=== PATIENT | male | born 1945 | race Caucasian/White ===

== ENCOUNTER 2018-03-03 09:32 | Day surgery (SDC) | payer MEDICARE, OTHER ==
[~2018-03-03] VITALS: Ht 180.3 cm; Wt 105.1 kg
[~2018-03-03 09:32] MED LIST: CLOP75TA14 PO; GABA-529 PO; INSU100V12 SQ; ROSU10TA PO; SODIUM CHLORIDE 0.9% 1000ML 1,000 ML IV ONE
[2018-03-03 09:51] VITALS: BP 146/73
[2018-03-03] MEDS ORDERED: METO-391 PO (10:32)
[2018-03-03] MEDS ORDERED: FISH1CAP20 PO (10:32)
[2018-03-03] MEDS ORDERED: CHOL100040 PO (10:32)
[2018-03-03] MEDS ORDERED: APIX2.5T PO (10:32)
[2018-03-03 11:08] VITALS: BP 75/33
[2018-03-03 11:10] VITALS: BP 75/33
[2018-03-03 11:13] VITALS: BP 90/57
[2018-03-03 11:29] VITALS: BP 122/61
--- NOTE | 2018-03-03 11:45 | NUR ---
PT TOLERATED PROCEDURE WELL, AT BEDSIDE FOR INSTRUCTIONS, PRESCRIPTION GIVEN TO AND DISCHARGE EDUCATION PACKET. PT AND GIVEN POST CARE INSTRUCTIONS, STATED UNDERSTANDING, PT ASSISTED TO CHAIR AND DRESSED. PT ABLE TO TOLERATE FLUIDS .PERSONAL BELONGING WITH WITH , PT PLACED IN WHEELCHAIR , DRIVEN HOME BY .
== END 2018-03-03 11:45 | disposition home or self-care (01) ==
LOC: DAH 09:32 → ENDO 09:32
PROVIDERS: ATTEND Internal Medicine
DX: K29.50 Unspecified chronic gastritis without bleeding (principal); D50.9 Iron deficiency anemia, unspecified; K25.9 Gastric ulcer, unspecified as acute or chronic, without hemorrhage or perforation; K31.89 Other diseases of stomach and duodenum; Z95.1 Presence of aortocoronary bypass graft; Z79.899 Other long term (current) drug therapy; I25.10 Atherosclerotic heart disease of native coronary artery without angina pectoris; Z95.0 Presence of cardiac pacemaker; E11.22 Type 2 diabetes mellitus with diabetic chronic kidney disease; N18.9 Chronic kidney disease, unspecified; Z98.890 Other specified postprocedural states; Z68.32 Body mass index [BMI] 32.0-32.9, adult; Z79.4 Long term (current) use of insulin; Z79.84 Long term (current) use of oral hypoglycemic drugs; Z85.46 Personal history of malignant neoplasm of prostate
CPT/HCPCS: 43239; 82948 ×2; 88305; 93005; A4606; J7030

== ENCOUNTER 2019-05-24 09:24 | Observation (INO) | payer OTHER ==
[~2019-05-24] VITALS: Ht 182.9 cm; Wt 107.6 kg
[~2019-05-24 09:24] MED LIST changes: +APIX2.5T PO; +CHOL100040 PO; +FISH1CAP20 PO; +METO-391 PO; -ROSU10TA PO; +ROSU10TA22 PO; -SODIUM CHLORIDE 0.9% 1000ML 1,000 ML IV ONE
[2019-05-24 09:50] LABS: EOSINOPHILS % (AUTO) 2.7 % (0.0-8.0); HEMATOCRIT 32.5 % (42-54); LYMPHOCYTES % (AUTO) 39.3 % (21.0-51.0); MEAN CORPUSCULAR HEMOGLOBIN 30.3 pg (27.0-33.0); MEAN CORPUSCULAR HGB CONC 31.7 g/dL (32.0-36.0); MEAN CORPUSCULAR VOLUME 95.6 fL (79-99); MONOCYTES % (AUTO) 10.2 % (3.0-13.0); NEUTROPHILS % (AUTO) 46.6 % (40.0-77.0); PLATELET COUNT (AUTO) 169 K/uL (130-400); RED CELL DISTRIBUTION WIDTH 16.2 % (11.0-15.5); WHITE BLOOD COUNT (AUTO) 5.2 K/uL (4.8-10.8)
[2019-05-24 10:09] LABS: INR 1.02 (0.85-1.15); PARTIAL THROMBOPLASTIN TIME 30.6 SEC (26.3-35.5)
[2019-05-24 10:16] LABS: CREATININE 1.9 mg/dL (0.5-1.5); POTASSIUM 4.2 mmol/L (3.5-5.1)
[2019-05-24 10:22] LABS: ALBUMIN 3.4 g/dL (3.5-5.0); BILIRUBIN,TOTAL 0.3 mg/dL (0.2-1.0); TOTAL PROTEIN, SERUM 7.4 g/dL (6.0-8.3)
[2019-05-24 10:48] LABS: APPEARANCE,URINE CLEAR (CLEAR); BILIRUBIN,URINE NEGATIVE (NEGATIVE); COLOR,URINE YELLOW (YELLOW); GLUCOSE, URINE (UA) NEGATIVE (NEGATIVE); KETONES,URINE NEGATIVE (NEGATIVE); LEUKOCYTE ESTERASE ,URINE NEGATIVE (NEGATIVE); NITRATE,URINE NEGATIVE (NEGATIVE); OCCULT BLOOD,URINE NEGATIVE (NEGATIVE); PH,URINE 5.5 (5.0-8.0); PROTEIN,URINE NEGATIVE (NEGATIVE)
[2019-05-24] MEDS ORDERED: INSULIN GLARGINE 100 UNITS/ML 10 ML VIAL SQ SCH (21:00)
[2019-05-24] MEDS ORDERED: ATORVASTATIN CALCIUM 20 MG TABLET PO SCH (21:00)
--- NOTE | 2019-05-25 01:11 | NUR ---
ADMISSION PT ADMITTED FROM ER INTO ROOM 430, AWAKE ALERT AND VERBALLY RESPONSIVE. PT ABLE TO AMBULATE FROM STRETCHER TO BED, ABLE TO MOVE ALL EXTREMITIES, NO LOC CHANGES, ABLE TO ANSWER QUESTIONS CORRECTLY, AND FOLLOW COMMANDS. PT ORIENTED TO ROOM , CALL [facility] WITHIN REACH, BED IN LOWEST POSITION. Addendum: 05/25/19 at 0225 by DERRICK HERNDON RN Amended: Links added.
[2019-05-25 01:15] VITALS: BP 140/65
[2019-05-25] MEDS: FISH OIL 1000 MG/CAP PO SCH ×2 (01:52→08:51)
[2019-05-25] MEDS: GABAPENTIN 100 MG CAPSULE PO SCH ×2 (01:52→08:50)
[2019-05-25] MEDS: SODIUM CHLORIDE 0.9% 1000ML 1,000 ML IV SCH ×2 (01:53→01:54)
[2019-05-25] MEDS: INSULIN HUMULIN R 100 UNIT/ML 3ML SQ SCH ×3 (01:53→11:30)
[2019-05-25 04:00] VITALS: BP 110/65
[2019-05-25 06:51] LABS: BASOPHILS % (AUTO) 0.7 % (0.0-5.0); EOSINOPHILS % (AUTO) 2.5 % (0.0-8.0); HEMATOCRIT 31.4 % (42-54); LYMPHOCYTES % (AUTO) 32.3 % (21.0-51.0); MEAN CORPUSCULAR HGB CONC 31.2 g/dL (32.0-36.0); MONOCYTES % (AUTO) 9.6 % (3.0-13.0); NEUTROPHILS % (AUTO) 54.5 % (40.0-77.0); PLATELET COUNT (AUTO) 159 K/uL (130-400); RED BLOOD CELL COUNT(AUTO) 3.27 MIL/uL (4.50-6.20); RED CELL DISTRIBUTION WIDTH 16.4 % (11.0-15.5); WHITE BLOOD COUNT (AUTO) 5.6 K/uL (4.8-10.8)
[2019-05-25 07:37] LABS: BILIRUBIN,TOTAL 0.2 mg/dL (0.2-1.0); CREATININE 1.9 mg/dL (0.5-1.5); POTASSIUM 4.4 mmol/L (3.5-5.1); TOTAL PROTEIN, SERUM 6.7 g/dL (6.0-8.3)
[2019-05-25 08:02] LABS: CHOLESTEROL 90 mg/dL (<200); HDL CHOLESTEROL 22 mg/dL (29-71); LDL DIRECT 44 mg/dL (0-99); TRIGLYCERIDES 251 mg/dL (30-200)
[2019-05-25 08:16] VITALS: BP 133/82
[2019-05-25] MEDS ORDERED: CHOLECALCIFEROL 1000 UNIT PO SCH (09:00)
[2019-05-25] MEDS ORDERED: ASPIRIN 325 MG TABLET PO SCH (09:00)
[2019-05-25] MEDS ORDERED: CLOPIDOGREL BISULFATE 75 MG TAB PO SCH (09:00)
[2019-05-25] MEDS ORDERED: FAMOTIDINE/PF 20 MG/2 ML VIAL IV SCH (09:00)
[2019-05-25] MEDS ORDERED: METOPROLOL SUCCINATE 50 MG TAB.SR.24H PO SCH (09:00)
[2019-05-25 11:40] VITALS: BP 139/72
--- NOTE | 2019-05-25 12:25 | NUR ---
RD NOTIFICATION Pt admitted with AMS, Syncope. Pt tolerating Heart Healthy Diet order. Reports has decreased appetite but with fair PO intake. RD recommend Ensure BID, Pt agrees. RD provided Heart Healthy Nutrition education. Pt verbalized understanding. and sister are primary meal providers at home and will appreciate the information. RD to continue to monitor. Addendum: 05/25/19 at [address] RD Amended: Links added.
--- NOTE | 2019-05-25 12:28 | NUR ---
NUTRITION [facility]UC[facility] MADYSON provided Heart Healthy Nutrition education. MADYSON provided reference materials and handouts. Pt verbalized understanding. and sister are primary meal providers at home and will appreciate the information. Addendum: 05/25/19 at [address] Amended: Links added.
--- NOTE | 2019-05-25 15:10 | NUR ---
INITIAL SW spoke to patient's spouse, Anna Jackson, [phone]. Patient lives with spouse. No home services. DME: [employer], glucometer (uses insulin), cane, walker. Patient is able to complete ADL's independently and drives. PCP is [place]. Gabe [place] at [place]. Pharmacy [place] [facility]. DCP is home. Addendum: 05/25/19 at 1512 by DELILAH BRITO SS Amended: Links added.
[2019-05-25 15:58] VITALS: BP 155/67
[2019-05-25] MEDS ORDERED: IBUP-2070 PO (16:05)
[2019-05-25] MEDS ORDERED: METO25TA3 PO (16:20)
== END 2019-05-25 17:00 | disposition home or self-care (01) ==
LOC: EDH 09:24 → INTOOBSV 14:55 → EDHIP 14:55 → OBSVTOIN 14:55 → 4AH 05-25 01:05
PROVIDERS: ADMIT Hospitalist; ATTEND Hospitalist
DX: R55 Syncope and collapse (principal); S00.83XA Contusion of other part of head, initial encounter; R41.82 Altered mental status, unspecified; E86.9 Volume depletion, unspecified; N17.9 Acute kidney failure, unspecified; E11.65 Type 2 diabetes mellitus with hyperglycemia; D64.9 Anemia, unspecified; E43 Unspecified severe protein-calorie malnutrition; I25.810 Atherosclerosis of coronary artery bypass graft(s) without angina pectoris; I25.2 Old myocardial infarction; I10 Essential (primary) hypertension; Z95.0 Presence of cardiac pacemaker; Z87.891 Personal history of nicotine dependence; W18.39XA Other fall on same level, initial encounter; Y93.89 Activity, other specified; Y92.89 Other specified places as the place of occurrence of the external cause; Y99.8 Other external cause status; Z88.5 Allergy status to narcotic agent; Z88.8 Allergy status to other drugs, medicaments and biological substances
CPT/HCPCS: 36415 ×2; 70450 ×2; 71045; 72125; 73502; 73560; 80053 ×2; 80061; 81003; 82550; 82948 ×4; 83605; 84443; 84484; 85025 ×2; 85610; 85651; 85730; 93005; 96361; 96374; 97039; 97116; 97161; 99285; G0378 ×11; G8978; G8979; G8980; G8981; G8982; G8983; J3490

== ENCOUNTER 2020-03-18 06:58 | Day surgery (SDC) | payer OTHER ==
[~2020-03-18] VITALS: Ht 182.9 cm; Wt 101.2 kg
[~2020-03-18 06:58] MED LIST changes: +ALOG12.52 PO; -APIX2.5T PO; +FERR324T PO; -METO-391 PO; +METO-409 PO; +SODIUM CHLORIDE 0.9% 1000ML 1,000 ML IV ONE
[2020-03-18 07:15] VITALS: BP 148/73
[2020-03-18] MEDS ORDERED: AEC81 PO (08:30)
[2020-03-18] MEDS ORDERED: PROPOFOL 10 MG/ML 20ML VIAL IV ONE (09:03)
[2020-03-18] MEDS ORDERED: LIDOCAINE HCL 1% 20 ML VIAL ONE (09:03)
[2020-03-18 09:40] VITALS: BP 124/61
[2020-03-18 09:45] VITALS: BP 132/56
[2020-03-18 09:50] VITALS: BP 135/63
[2020-03-18 09:55] VITALS: BP 126/65
== END 2020-03-18 10:30 | disposition home or self-care (01) ==
LOC: ENDO 06:58 → DAH 06:58 → ENDO 10:30
PROVIDERS: ATTEND Internal Medicine Gastroenterology
DX: K59.04 Chronic idiopathic constipation (principal); Z20.822 Contact with and (suspected) exposure to COVID-19; R10.10 Upper abdominal pain, unspecified; K57.30 Diverticulosis of large intestine without perforation or abscess without bleeding; K29.50 Unspecified chronic gastritis without bleeding; E11.22 Type 2 diabetes mellitus with diabetic chronic kidney disease; N18.9 Chronic kidney disease, unspecified; I25.10 Atherosclerotic heart disease of native coronary artery without angina pectoris; I25.2 Old myocardial infarction; Z79.82 Long term (current) use of aspirin; Z79.01 Long term (current) use of anticoagulants; Z79.899 Other long term (current) drug therapy; Z79.4 Long term (current) use of insulin; Z85.07 Personal history of malignant neoplasm of pancreas; Z95.1 Presence of aortocoronary bypass graft; Z95.0 Presence of cardiac pacemaker; Z98.890 Other specified postprocedural states; Z87.442 Personal history of urinary calculi
CPT/HCPCS: 43239; 45378; 82948 ×2; A4215 ×2; A4222; A4223; A4606; A4620; A4657; A4663; C9803; J2704; J7030; U0003

== ENCOUNTER → 2020-05-19 | Outpatient (CLI) | payer OTHER ==
[~2020-05-19] MED LIST changes: +AEC81 PO; -ALOG12.52 PO; -CHOL100040 PO; -FISH1CAP20 PO; -ROSU10TA22 PO; -SODIUM CHLORIDE 0.9% 1000ML 1,000 ML IV ONE
== END | disposition home or self-care (01) ==
LOC: RAH 12:25
PROVIDERS: ATTEND Family Medicine
DX: S76.012S Strain of muscle, fascia and tendon of left hip, sequela (principal); M47.27 Other spondylosis with radiculopathy, lumbosacral region; M48.07 Spinal stenosis, lumbosacral region; R60.0 Localized edema; Z79.899 Other long term (current) drug therapy
CPT/HCPCS: 72148; 73721

== ENCOUNTER 2020-10-14 09:00 | Inpatient (IN) | payer OTHER ==
[~2020-10-14] VITALS: Ht 182.9 cm; Wt 99.1 kg
[~2020-10-14 09:00] MED LIST changes: -FERR324T PO
[2020-10-14 10:27] LABS: BASOPHILS % (AUTO) 0.8 % (0.0-5.0); EOSINOPHILS % (AUTO) 3.3 % (0.0-8.0); LYMPHOCYTES % (AUTO) 26.2 % (21.0-51.0); MEAN CORPUSCULAR HEMOGLOBIN 30.2 pg (27.0-33.0); MEAN CORPUSCULAR HGB CONC 31.1 g/dL (32.0-36.0); MEAN CORPUSCULAR VOLUME 97.3 fL (79-99); MONOCYTES % (AUTO) 6.6 % (3.0-13.0); NEUTROPHILS % (AUTO) 62.6 % (40.0-77.0); PLATELET COUNT (AUTO) 210 K/uL (130-400); RED BLOOD CELL COUNT(AUTO) 4.83 MIL/uL (4.50-6.20); RED CELL DISTRIBUTION WIDTH 16.3 % (11.0-15.5); WHITE BLOOD COUNT (AUTO) 8.7 K/uL (4.8-10.8)
[2020-10-14 10:29] LABS: APPEARANCE,URINE Clear (CLEAR); BILIRUBIN,URINE Small (NEGATIVE); COLOR,URINE Dark Yellow (YELLOW); GLUCOSE, URINE (UA) Negative (NEGATIVE); KETONES,URINE Trace mg/dL (NEGATIVE); LEUKOCYTE ESTERASE ,URINE Small (NEGATIVE); NITRATE,URINE Negative (NEGATIVE); OCCULT BLOOD,URINE Negative (NEGATIVE); PROTEIN,URINE Trace mg/dL (NEGATIVE)
[2020-10-14 10:39] LABS: INR 1.02 (0.85-1.15); PROTHROMBIN TIME 11.1 SEC (9.6-11.6)
[2020-10-14 10:41] LABS: RBC,URINE 0-1 /HPF (0-1)
[2020-10-14 10:42] LABS: BACTERIA,URINE Rare /HPF (None Seen); SQUAMOUS EPITHELIAL CELL,UR Rare /HPF (0-2)
[2020-10-14 10:46] LABS: CREATININE 2.2 mg/dL (0.5-1.5); POTASSIUM 4.9 mmol/L (3.5-5.1)
[2020-10-14 15:11] VITALS: BP 122/70
[2020-10-14] MEDS ORDERED: HYDR-4379 PO (15:43)
[2020-10-14] MEDS ORDERED: DICY10CA13 PO (15:43)
[2020-10-15] VITALS (23 sets, daily range): BP systolic 109–162; BP diastolic 44–71
[2020-10-15] MEDS ORDERED: LEVOFLOXACIN 500 MG/D5W 100 ML 100 ML IV SCH (06:30)
[2020-10-15] MEDS ORDERED: 0.9%NACL 1000ML 1,000 ML IV ONE (06:58)
[2020-10-15] MEDS: CEFAZOLIN SODIUM 1 GM VIAL ONE ×2 (07:09→09:00)
[2020-10-15] MEDS ORDERED: LIDOCAINE HCL-MPF 1% 5ML AMP IJ ONE (08:15)
[2020-10-15] MEDS ORDERED: SUCCINYLCHOLINE CHLORIDE 20 MG/ML 10 ML VIAL ONE (08:15)
[2020-10-15] MEDS ORDERED: MIDAZOLAM HCL 1 MG/ML 2ML VIAL ONE (08:16)
[2020-10-15] MEDS ORDERED: ROCURONIUM 10MG/1ML SYR 10 MG/ML ML ONE (08:16)
[2020-10-15] MEDS ORDERED: PROPOFOL 10 MG/ML 20ML VIAL IV ONE (08:16)
[2020-10-15] MEDS ORDERED: FENTANYL CITRATE PF 50 MCG/1 ML 2ML VIAL ONE (08:16)
[2020-10-15] MEDS ORDERED: EPHEDRINE SULFATE 50 MG/ML AMPULE ONE (08:44)
[2020-10-15] MEDS ORDERED: CEFAZOLIN SODIUM 1 GM VIAL ONE (09:21)
[2020-10-15] MEDS: 0.9%NACL 1000ML 1,000 ML IV SCH (11:30)
[2020-10-15] MEDS ORDERED: FERROUS FUMARATE 324 MG TABLET PO PRN (11:30)
[2020-10-15] MEDS ORDERED: KCL 20 MEQ ERTAB PO PRN (11:30)
[2020-10-15] MEDS ORDERED: DiphenhydrAMINE HCL 50 MG/ML VIAL IVP PRN (11:30)
[2020-10-15] MEDS: CEFAZOLIN SODIUM 1 GM VIAL IVP SCH ×2 (11:30→19:42)
[2020-10-15] MEDS ORDERED: DIPHENHYDRAMINE HCL 25 MG CAPSULE PO PRN (11:30)
[2020-10-15] MEDS ORDERED: TRAMADOL HCL 50 MG TABLET PO PRN (11:30)
[2020-10-15] MEDS ORDERED: KETOROLAC 15MG/ML VIAL (15MG/ML) IV PRN (11:30)
[2020-10-15] MEDS ORDERED: POTASSIUM CHLORIDE 10% ELIXIR 20 MEQ/15 ML UDCUP PO PRN (11:30)
[2020-10-15] MEDS ORDERED: LIDOCAINE HCL-MPF 1% 2ML VIAL IV PRN (11:30)
[2020-10-15] MEDS ORDERED: POTASSIUM CHLORIDE 20MEQ/100ML 100 ML IV PRN (11:30)
[2020-10-15] MEDS: INSULIN HUMULIN R 100 UNIT/ML 3ML SQ SCH ×3 (11:30→21:00)
[2020-10-15] MEDS ORDERED: TEMAZEPAM 15 MG CAPSULE PO PRN (11:30)
[2020-10-15] MEDS ORDERED: ONDANSETRON 4MG INJ IVP PRN (11:30)
[2020-10-15] MEDS: ACETAMINOPHEN 500 MG TABLET PO SCH ×2 (11:30→19:42)
[2020-10-15] MEDS: PSYLLIUM SEED 1 EACH PACKET PO SCH (12:00)
[2020-10-15] MEDS ORDERED: MEPERIDINE-PF 25 MG/ML SYG ONE (12:24)
[2020-10-15] MEDS ORDERED: GABAPENTIN 100 MG CAPSULE ONE (19:38)
[2020-10-15] MEDS: GABAPENTIN 100 MG CAPSULE PO SCH (19:40)
[2020-10-15] MEDS: DICYCLOMINE HCL 20 MG TAB PO SCH (19:41)
[2020-10-15] MEDS: PREGABALIN 25 MG CAP PO SCH (19:41)
[2020-10-15] MEDS: FAMOTIDINE 20MG TAB PO SCH (19:42)
[2020-10-15] MEDS: CELECOXIB 200 MG CAP PO SCH (19:43)
[2020-10-16] VITALS: BP 104/47
[2020-10-16] MEDS: ACETAMINOPHEN 500 MG TABLET PO SCH ×3 (03:30→19:30)
[2020-10-16 04:00] VITALS: BP 126/49
[2020-10-16 04:37] LABS: HEMATOCRIT 39.6 % (42-54); MEAN CORPUSCULAR HEMOGLOBIN 29.8 pg (27.0-33.0); MEAN CORPUSCULAR HGB CONC 30.6 g/dL (32.0-36.0); MEAN CORPUSCULAR VOLUME 97.5 fL (79-99); PLATELET COUNT (AUTO) 166 K/uL (130-400); RED BLOOD CELL COUNT(AUTO) 4.06 MIL/uL (4.50-6.20); RED CELL DISTRIBUTION WIDTH 16.5 % (11.0-15.5); WHITE BLOOD COUNT (AUTO) 9.4 K/uL (4.8-10.8)
[2020-10-16 04:55] LABS: CREATININE 1.8 mg/dL (0.5-1.5)
[2020-10-16 04:59] LABS: INR 1.06 (0.85-1.15); PROTHROMBIN TIME 11.5 SEC (9.6-11.6)
[2020-10-16] MEDS: OXYCODONE HCL 5 MG TAB PO PRN ×4 (05:38→17:49)
[2020-10-16 07:22] VITALS: BP 102/46
[2020-10-16] MEDS: INSULIN HUMULIN R 100 UNIT/ML 3ML SQ SCH ×4 (07:30→21:00)
[2020-10-16] MEDS: 0.9%NACL 1000ML 1,000 ML IV SCH (07:30)
[2020-10-16] MEDS: INSULIN GLARGINE 100 UNITS/ML 10 ML VIAL SQ SCH (09:00)
[2020-10-16] MEDS: POLYETHYLENE GLYCOL 3350 17 GM POWD.PACK PO SCH (10:29)
[2020-10-16] MEDS: METOPROLOL SUCCINATE 50 MG TAB.SR.24H PO SCH (10:30)
[2020-10-16] MEDS: ASPIRIN 81 MG EC TAB PO SCH (10:30)
[2020-10-16] MEDS: GABAPENTIN 100 MG CAPSULE PO SCH ×3 (10:30→21:57)
[2020-10-16] MEDS: CELECOXIB 200 MG CAP PO SCH ×2 (10:30→21:57)
[2020-10-16] MEDS: TAMSULOSIN HCL 0.4 MG CAP.ER.24H PO SCH (10:30)
[2020-10-16] MEDS: PREGABALIN 25 MG CAP PO SCH ×2 (10:30→21:58)
[2020-10-16] MEDS: CLOPIDOGREL 75MG TAB PO SCH (10:30)
[2020-10-16] MEDS: DICYCLOMINE HCL 20 MG TAB PO SCH ×2 (10:31→21:58)
[2020-10-16] MEDS: FAMOTIDINE 20MG TAB PO SCH ×2 (10:31→21:58)
[2020-10-16] MEDS: CALCIUM CARB 500MG PO PRN (11:09)
[2020-10-16 11:45] VITALS: BP 111/57
[2020-10-16] MEDS: PSYLLIUM SEED 1 EACH PACKET PO SCH (13:03)
[2020-10-16 15:43] VITALS: BP 97/47
[2020-10-16 19:00] VITALS: BP 107/43
[2020-10-17] VITALS: BP 118/45
[2020-10-17] MEDS: ACETAMINOPHEN 500 MG TABLET PO SCH ×2 (03:05→11:17)
[2020-10-17 04:00] VITALS: BP 108/47
[2020-10-17 04:50] LABS: HEMATOCRIT 35.1 % (42-54); MEAN CORPUSCULAR HEMOGLOBIN 30.1 pg (27.0-33.0); MEAN CORPUSCULAR HGB CONC 31.1 g/dL (32.0-36.0); RED BLOOD CELL COUNT(AUTO) 3.62 MIL/uL (4.50-6.20); RED CELL DISTRIBUTION WIDTH 16.4 % (11.0-15.5); WHITE BLOOD COUNT (AUTO) 7.7 K/uL (4.8-10.8)
[2020-10-17 04:59] LABS: INR 1.05 (0.85-1.15); PROTHROMBIN TIME 11.4 SEC (9.6-11.6)
[2020-10-17 05:05] LABS: CREATININE 2.1 mg/dL (0.5-1.5); POTASSIUM 5.2 mmol/L (3.5-5.1)
[2020-10-17] MEDS: INSULIN HUMULIN R 100 UNIT/ML 3ML SQ SCH ×2 (06:34→11:35)
[2020-10-17 07:55] VITALS: BP 124/60
[2020-10-17] MEDS: OXYCODONE HCL 5 MG TAB PO PRN ×2 (08:11→12:56)
[2020-10-17] MEDS: INSULIN GLARGINE 100 UNITS/ML 10 ML VIAL SQ SCH (08:37)
[2020-10-17] MEDS: TAMSULOSIN HCL 0.4 MG CAP.ER.24H PO SCH (08:41)
[2020-10-17] MEDS: METOPROLOL SUCCINATE 50 MG TAB.SR.24H PO SCH (08:41)
[2020-10-17] MEDS: ASPIRIN 81 MG EC TAB PO SCH (08:41)
[2020-10-17] MEDS: FAMOTIDINE 20MG TAB PO SCH (08:41)
[2020-10-17] MEDS: PREGABALIN 25 MG CAP PO SCH (08:41)
[2020-10-17] MEDS: CELECOXIB 200 MG CAP PO SCH (08:42)
[2020-10-17] MEDS: CLOPIDOGREL 75MG TAB PO SCH (08:42)
[2020-10-17] MEDS: GABAPENTIN 100 MG CAPSULE PO SCH ×2 (08:42→14:47)
[2020-10-17] MEDS: POLYETHYLENE GLYCOL 3350 17 GM POWD.PACK PO SCH (08:42)
[2020-10-17] MEDS: DICYCLOMINE HCL 20 MG TAB PO SCH (08:42)
[2020-10-17] MEDS: CALCIUM CARB 500MG PO PRN (08:42)
[2020-10-17 11:29] VITALS: BP 118/55
[2020-10-17] MEDS ORDERED: BISACODYL 5 MG TABLET.DR PO PRN (11:30)
[2020-10-17] MEDS: PSYLLIUM SEED 1 EACH PACKET PO SCH (11:57)
[2020-10-17] MEDS ORDERED: SIMETHICONE 80 MG TAB.CHEW ONE (12:06)
[2020-10-17] MEDS ORDERED: SIMETHICONE 80 MG TAB.CHEW PO PRN (12:30)
[2020-10-17 16:18] VITALS: BP 118/60
[2020-10-18] MEDS ORDERED: BISACODYL 10 MG SUPP.RECT RC PRN (11:30)
== END 2020-10-17 16:00 | disposition home or self-care (01) | DRG 502 ==
LOC: EDSTATUS 09:00 → DAHIP 10-15 06:26 → 3AH 10-15 13:54
PROVIDERS: ADMIT Orthopaedic Surgery; ATTEND Orthopaedic Surgery
PROC: 0KQR0ZZ Repair Left Upper Leg Muscle, Open Approach (ICD-10-PCS; principal; 2020-10-15 09:22)
DX: S76.312A Strain of muscle, fascia and tendon of the posterior muscle group at thigh level, left thigh, initial encounter (principal); D64.9 Anemia, unspecified; K21.9 Gastro-esophageal reflux disease without esophagitis; G89.29 Other chronic pain; I25.10 Atherosclerotic heart disease of native coronary artery without angina pectoris; N18.9 Chronic kidney disease, unspecified; I12.9 Hypertensive chronic kidney disease with stage 1 through stage 4 chronic kidney disease, or unspecified chronic kidney disease; E11.22 Type 2 diabetes mellitus with diabetic chronic kidney disease; E78.5 Hyperlipidemia, unspecified; L57.0 Actinic keratosis; Z20.822 Contact with and (suspected) exposure to COVID-19; Z95.0 Presence of cardiac pacemaker; Z98.42 Cataract extraction status, left eye; Z98.41 Cataract extraction status, right eye; Z87.11 Personal history of peptic ulcer disease; Z85.46 Personal history of malignant neoplasm of prostate; Z88.5 Allergy status to narcotic agent
CPT/HCPCS: 36415; 80048; 81001; 82948; 85025; 85027; 85610; 87088; 87635; 87641; 97039; G0378; J0330; J0690; J1815; J1956; J2175; J2250; J2704; J3010; J3490; J7030

== ENCOUNTER → 2021-02-03 | Outpatient (CLI) | payer OTHER ==
[~2021-02-03] MED LIST changes: +DICY10CA13 PO; +HYDR-4379 PO
== END | disposition home or self-care (01) ==
LOC: RAH 07:43
PROVIDERS: ATTEND Internal Medicine Gastroenterology
DX: R10.10 Upper abdominal pain, unspecified (principal)
CPT/HCPCS: 74150

== ENCOUNTER → 2021-02-13 | Outpatient (CLI) | payer OTHER | END | disposition home or self-care (01) | LOC: RAH 07:14 | PROVIDERS: ATTEND Internal Medicine Gastroenterology | DX: R10.10 Upper abdominal pain, unspecified (principal); R14.0 Abdominal distension (gaseous) | CPT/HCPCS: 78264; A9541 ==

== ENCOUNTER 2022-05-24 16:55 | Inpatient (IN) | payer OTHER ==
[~2022-05-24] VITALS: Ht 182.9 cm; Wt 98.7 kg
[~2022-05-24 16:55] MED LIST changes: +CLOP-31 PO; -CLOP75TA14 PO
[2022-05-24 17:23] LABS: BASOPHILS % (AUTO) 0.5 % (0.0-5.0); EOSINOPHILS % (AUTO) 1.4 % (0.0-8.0); LYMPHOCYTES % (AUTO) 22.2 % (21.0-51.0); MEAN CORPUSCULAR HEMOGLOBIN 31.5 pg (27.0-33.0); MEAN CORPUSCULAR HGB CONC 32.5 g/dL (32.0-36.0); MONOCYTES % (AUTO) 6.3 % (3.0-13.0); NEUTROPHILS % (AUTO) 69.2 % (40.0-77.0); PLATELET COUNT (AUTO) 225 K/uL (130-400); RED BLOOD CELL COUNT(AUTO) 3.71 MIL/uL (4.50-6.20); RED CELL DISTRIBUTION WIDTH 13.2 % (11.0-15.5); WHITE BLOOD COUNT (AUTO) 10.4 K/uL (4.8-10.8)
[2022-05-24 17:24] LABS: APPEARANCE,URINE TURBID (CLEAR); BILIRUBIN,URINE NEGATIVE (NEGATIVE); COLOR,URINE YELLOW (YELLOW); GLUCOSE, URINE (UA) NEGATIVE (NEGATIVE); KETONES,URINE NEGATIVE (NEGATIVE); LEUKOCYTE ESTERASE ,URINE 500 Leu/uL (NEGATIVE); NITRATE,URINE NEGATIVE (NEGATIVE); OCCULT BLOOD,URINE MODERATE (NEGATIVE); PROTEIN,URINE 50 mg/dL (NEGATIVE); UROBILINOGEN,URINE 0.2 mg/dL (0.2-1.0)
[2022-05-24 17:37] LABS: BACTERIA,URINE RARE /HPF (None Seen); SQUAMOUS EPITHELIAL CELL,UR RARE /HPF (0-2); WBC,URINE >100 /HPF (0-1); YEAST,URINE BUDDING FEW /HPF (None Seen)
[2022-05-24 17:40] LABS: CARBON DIOXIDE 27 mmol/L (21-32); CHLORIDE 96 mmol/L (101-111); CREATININE 2.7 mg/dL (0.5-1.5); GLOMERULAR FILTR. RATE CALC 24 mL/min (>90); GLUCOSE,RANDOM 129 mg/dL (70-105); POTASSIUM 3.7 mmol/L (3.5-5.1); SODIUM SERUM 132 mmol/L (136-145); UREA NITROGEN, BLOOD 39 mg/dL (7-18)
[2022-05-24 17:56] LABS: ALANINE AMINOTRANSFERASE 23 U/L (12-78); ASPARTATE AMINOTRANSFERASE 24 U/L (10-37); TOTAL PROTEIN, SERUM 8.6 g/dL (6.0-8.3)
[2022-05-24 17:59] LABS: LIPASE < 50 U/L (114-286)
[2022-05-24] MEDS ORDERED: 0.9%NACL 1000ML 1,000 ML IV ONE (18:00)
[2022-05-24] MEDS ORDERED: CEFTRIAXONE 1G VIAL IVP ONE (19:30)
[2022-05-24] MEDS ORDERED: MAG/ALUM/SIMETH 30 ML UDCUP PO PRN (20:00)
[2022-05-24] MEDS ORDERED: LACTULOSE 20 GM/30 ML UDCUP PO PRN (20:00)
[2022-05-24] MEDS ORDERED: ACETAMINOPHEN 325 MG TAB PO PRN ×2 (20:00)
[2022-05-24] MEDS ORDERED: DiphenhydrAMINE HCL 50 MG/ML VIAL IV PRN (20:00)
[2022-05-24] MEDS ORDERED: ONDANSETRON 4MG INJ IV PRN (20:00)
[2022-05-24] MEDS: CEFTRIAXONE 1G VIAL IV SCH (20:00)
[2022-05-24] MEDS ORDERED: MORPHINE 4 MG SYG IV PRN (20:00)
[2022-05-24] MEDS ORDERED: HYDROCODONE/ACETAMINOPHEN 5/325 MG TAB PO PRN (20:00)
[2022-05-24] MEDS ORDERED: LACTULOSE 20 GM/30 ML UDCUP PO ONE (20:30)
[2022-05-24 20:42] LABS: THYROID STIMULATING HORMONE 2.61 uIU/mL (0.36-3.74)
[2022-05-24] MEDS: SENNOSIDES 8.6 MG TABLET PO SCH (21:00)
[2022-05-24] MEDS: FAMOTIDINE 20MG TAB PO SCH (21:00)
[2022-05-24] MEDS: INSULIN HUMULIN R 100 UNIT/ML 3ML SQ SCH (21:00)
[2022-05-24] MEDS: 0.9%NACL 1000ML 1,000 ML IV SCH (21:42)
[2022-05-25] MEDS: INSULIN HUMULIN R 100 UNIT/ML 3ML SQ SCH ×4 (07:24→21:00)
[2022-05-25 08:00] LABS: HEMATOCRIT 35.3 % (42-54); MEAN CORPUSCULAR HEMOGLOBIN 31.4 pg (27.0-33.0); MEAN CORPUSCULAR HGB CONC 32.9 g/dL (32.0-36.0); MEAN CORPUSCULAR VOLUME 95.7 fL (79-99); RED BLOOD CELL COUNT(AUTO) 3.69 MIL/uL (4.50-6.20); RED CELL DISTRIBUTION WIDTH 13.2 % (11.0-15.5); WHITE BLOOD COUNT (AUTO) 7.9 K/uL (4.8-10.8)
[2022-05-25 08:22] LABS: CREATININE 2.5 mg/dL (0.5-1.5); POTASSIUM 3.8 mmol/L (3.5-5.1)
[2022-05-25] MEDS: SENNOSIDES 8.6 MG TABLET PO SCH ×2 (09:26→20:23)
[2022-05-25] MEDS: APIXABAN 2.5 MG TABLET PO SCH ×2 (09:26→20:23)
[2022-05-25] MEDS: FAMOTIDINE 20MG TAB PO SCH ×2 (09:26→20:22)
[2022-05-25] MEDS: METOPROLOL SUCCINATE 50 MG TAB.SR.24H PO SCH (09:26)
[2022-05-25] MEDS: FENOFIBRATE NANOCRYSTALLIZED 48 MG TAB PO SCH (09:26)
[2022-05-25] MEDS: 0.9%NACL 1000ML 1,000 ML IV SCH (09:27)
[2022-05-25 16:00] VITALS: BP 117/62
[2022-05-25 20:00] VITALS: BP 121/58
[2022-05-25] MEDS: CEFTRIAXONE 1G VIAL IV SCH (20:52)
[2022-05-25] MEDS ORDERED: ATORVASTATIN 20 MG TABLET PO SCH (21:00)
[2022-05-26] VITALS: BP 106/51
[2022-05-26 04:00] VITALS: BP 121/66
[2022-05-26 06:30] LABS: EOSINOPHILS % (AUTO) 2.6 % (0.0-8.0); HEMATOCRIT 32.8 % (42-54); LYMPHOCYTES % (AUTO) 39.7 % (21.0-51.0); MEAN CORPUSCULAR HEMOGLOBIN 31.5 pg (27.0-33.0); MEAN CORPUSCULAR HGB CONC 32.3 g/dL (32.0-36.0); MEAN CORPUSCULAR VOLUME 97.6 fL (79-99); MONOCYTES % (AUTO) 6.8 % (3.0-13.0); NEUTROPHILS % (AUTO) 49.4 % (40.0-77.0); PLATELET COUNT (AUTO) 191 K/uL (130-400); RED BLOOD CELL COUNT(AUTO) 3.36 MIL/uL (4.50-6.20); RED CELL DISTRIBUTION WIDTH 13.3 % (11.0-15.5); WHITE BLOOD COUNT (AUTO) 5.8 K/uL (4.8-10.8)
[2022-05-26 06:40] LABS: ALBUMIN 3.2 g/dL (3.5-5.0); CREATININE 2.4 mg/dL (0.5-1.5); MAGNESIUM 1.9 mg/dL (1.80-2.40); POTASSIUM 4.1 mmol/L (3.5-5.1); TOTAL PROTEIN, SERUM 7.1 g/dL (6.0-8.3)
[2022-05-26] MEDS: INSULIN HUMULIN R 100 UNIT/ML 3ML SQ SCH ×2 (07:05→11:30)
[2022-05-26 08:00] VITALS: BP 122/65
[2022-05-26] MEDS: SENNOSIDES 8.6 MG TABLET PO SCH (08:15)
[2022-05-26] MEDS: METOPROLOL SUCCINATE 50 MG TAB.SR.24H PO SCH (08:15)
[2022-05-26] MEDS: FENOFIBRATE NANOCRYSTALLIZED 48 MG TAB PO SCH (08:16)
[2022-05-26] MEDS: FAMOTIDINE 20MG TAB PO SCH (08:16)
[2022-05-26] MEDS: APIXABAN 2.5 MG TABLET PO SCH (08:18)
[2022-05-26] MEDS: 0.9%NACL 1000ML 1,000 ML IV SCH (08:21)
[2022-05-26] MEDS ORDERED: ZOSYN 3.375GM +NS 50ML IVPB SCH (08:30)
[2022-05-26 08:43] VITALS: BP 122/65
[2022-05-26] MEDS ORDERED: ZOSYN 3.375GM+NS 50ML 50 ML IVPB SCH (09:00)
[2022-05-26] MEDS ORDERED: 0.9%NACL 50ML IV SCH (09:00)
[2022-05-26] MEDS ORDERED: LEVO250T75 PO (11:39)
[2022-05-26 12:00] VITALS: BP 120/68
== END 2022-05-26 13:10 | disposition home or self-care (01) | DRG 312 ==
LOC: EDH 16:55 → EDHIP 19:51 → OBSVTOIN 19:51 → 3CH 05-25 15:50
PROVIDERS: ADMIT Hospitalist; ATTEND Hospitalist
DX: I95.1 Orthostatic hypotension (principal); N30.00 Acute cystitis without hematuria; E87.1 Hypo-osmolality and hyponatremia; I13.0 Hypertensive heart and chronic kidney disease with heart failure and stage 1 through stage 4 chronic kidney disease, or unspecified chronic kidney disease; N17.9 Acute kidney failure, unspecified; I25.10 Atherosclerotic heart disease of native coronary artery without angina pectoris; I50.9 Heart failure, unspecified; K59.09 Other constipation; E86.0 Dehydration; E83.52 Hypercalcemia; E78.00 Pure hypercholesterolemia, unspecified; E11.22 Type 2 diabetes mellitus with diabetic chronic kidney disease; N18.9 Chronic kidney disease, unspecified; Z79.4 Long term (current) use of insulin; Z82.49 Family history of ischemic heart disease and other diseases of the circulatory system; Z85.46 Personal history of malignant neoplasm of prostate; Z88.5 Allergy status to narcotic agent; Z95.810 Presence of automatic (implantable) cardiac defibrillator; Z79.899 Other long term (current) drug therapy
CPT/HCPCS: 36415; 71045; 74176; 80048; 80053; 81001; 82150; 82330; 82948; 83605; 83690; 83735; 83880; 83970; 84443; 84484; 85025; 85027; 87040; 87077; 87088; 87186; 93005; 93306; 93356; G0378; J0696; J1815; J2270; J2543; J7030

== ENCOUNTER → 2023-03-15 | Outpatient (CLI) | payer OTHER ==
[~2023-03-15] MED LIST changes: +DICY-20 PO; -DICY10CA13 PO; +LEVO250T75 PO
== END | disposition home or self-care (01) ==
LOC: RAH 12:37
PROVIDERS: ATTEND Family Medicine
DX: R13.13 Dysphagia, pharyngeal phase (principal)
CPT/HCPCS: 74230; 92611

== ENCOUNTER 2023-10-05 10:36 | Inpatient (IN) | payer MEDICARE, OTHER ==
[~2023-10-05] VITALS: Ht 182.9 cm; Wt 94.7 kg
[~2023-10-05 10:36] MED LIST changes: -DICY-20 PO; +DICY10CA2 PO
[2023-10-05] MEDS: ASPIRIN 81MG CHEW TAB PO ONE (10:56)
[2023-10-05 11:13] LABS: CREATININE 2.2 mg/dL (0.5-1.3); POTASSIUM 4.4 mmol/L (3.5-5.1)
[2023-10-05 11:39] LABS: BASOPHILS # (AUTO) 0.09 K/uL (0.00-0.20); EOSINOPHILS # (AUTO) 0.15 K/uL (0.00-0.70); EOSINOPHILS % (AUTO) 1.7 % (0.0-8.0); HEMATOCRIT 38.9 % (42-54); IMMATURE GRANULOCYTE ABSOLUTE 0.03 K/uL (0-1); LYMPHOCYTES # (AUTO) 3.5 K/uL (1.0-4.8); MEAN CORPUSCULAR HEMOGLOBIN 32.1 pg (27.0-33.0); MEAN CORPUSCULAR HGB CONC 32.4 g/dL (32.0-36.0); MEAN CORPUSCULAR VOLUME 99.2 fL (79-99); MONOCYTES # (AUTO) 0.7 K/uL (0.1-1.0); MONOCYTES % (AUTO) 7.8 % (3.0-13.0); NEUTROPHILS # (AUTO) 4.3 K/uL (1.8-7.7); NEUTROPHILS % (AUTO) 49.2 % (40.0-77.0); PLATELET COUNT (AUTO) 188 K/uL (130-400); RED BLOOD CELL COUNT(AUTO) 3.92 MIL/uL (4.50-6.20); RED CELL DISTRIBUTION WIDTH 14.6 % (11.0-15.5); WHITE BLOOD COUNT (AUTO) 8.8 K/uL (4.8-10.8)
[2023-10-05] MEDS: NITROGLYCERIN 0.4 MG SL TAB SL PRN (11:41)
[2023-10-05 11:57] LABS: B-TYPE NATRIURETIC PEPTIDE 775 pg/mL (0-100)
[2023-10-05] MEDS ORDERED: acetaMINOPHEN 325 MG TAB PO PRN ×2 (13:30)
[2023-10-05] MEDS ORDERED: ONDANSETRON 4MG INJ IV PRN (13:30)
[2023-10-05 14:04] LABS: HEMOGLOBIN A1C 6.9 % (4.0-6.0)
[2023-10-05] MEDS: metoPROLOL tartRATE 50 MG TAB ONE (15:43)
[2023-10-05] MEDS: furoSEMIDE 20MG VIAL ONE (15:43)
[2023-10-05] MEDS: furoSEMIDE 20MG VIAL IV SCH (15:44)
[2023-10-05] MEDS: metoPROLOL tartRATE 50 MG TAB PO SCH (15:44)
[2023-10-05] MEDS: 0.9%NACL 1000ML 1,000 ML IV SCH (16:01)
[2023-10-05] MEDS: HEParin 5,000 UNIT VIAL IV PRN (16:25)
[2023-10-05] MEDS: HEParin 25,000 UNITS/250ML D5W 250 ML IV SCH (16:41)
[2023-10-05 16:46] LABS: INR 1.02 (0.85-1.15)
[2023-10-05 16:47] LABS: PARTIAL THROMBOPLASTIN TIME 29.8 SEC (26.3-35.5)
[2023-10-05 18:11] LABS: APPEARANCE,URINE CLEAR (CLEAR); BILIRUBIN,URINE NEGATIVE (NEGATIVE); COLOR,URINE COLORLESS (YELLOW); GLUCOSE, URINE (UA) NEGATIVE (NEGATIVE); KETONES,URINE NEGATIVE (NEGATIVE); LEUKOCYTE ESTERASE ,URINE NEGATIVE Leu/uL (NEGATIVE); NITRATE,URINE NEGATIVE (NEGATIVE); OCCULT BLOOD,URINE NEGATIVE (NEGATIVE); PROTEIN,URINE NEGATIVE (NEGATIVE); UROBILINOGEN,URINE 0.2 mg/dL (0.2-1.0)
[2023-10-05 18:12] LABS: ADD UA MICROSCOPIC YES; RBC,URINE 0-1 /HPF (0-1)
[2023-10-05] MEDS ORDERED: ROSU10TA72 PO (18:13)
[2023-10-05] MEDS ORDERED: APIX2.5T PO (18:13)
[2023-10-05 18:23] VITALS: O2SAT 98
[2023-10-05 19:15] VITALS: BP 140/74; PULSE 91; RESP 22; TEMP 97.3
[2023-10-05] MEDS: FAMOTIDINE 20MG VIAL IV SCH (19:43)
[2023-10-05 20:00] VITALS: O2SAT 98
[2023-10-05] MEDS ORDERED: HEParin 5,000 UNIT VIAL SQ SCH (21:00)
[2023-10-05] MEDS: Rosuvastatin Calcium 10 MG PO SCH (21:00)
[2023-10-05] MEDS: morPHINE 2 MG SYG IV PRN (22:06)
[2023-10-05 23:35] LABS: CHLORIDE,URINE RANDOM 125 mmol/L (110-250); CREATININE,URINE RANDOM 11.48 mg/dL (30-135); POTASSIUM,URINE RANDOM 12 mmol/L (25-125); PROTEIN,URINE RANDOM < 6.0 mg/dL (0-11.9); SODIUM,URINE RANDOM 119 mmol/l (40-220)
[2023-10-06] VITALS (17 sets, daily range): BP systolic 92–139; BP diastolic 48–89; PULSE 67–85; RESP 16–22; TEMP 97.3–99.1; O2SAT 96–98
[2023-10-06 05:27] LABS: BASOPHILS # (AUTO) 0.07 K/uL (0.00-0.20); BASOPHILS % (AUTO) 0.7 % (0.0-5.0); EOSINOPHILS # (AUTO) 0.11 K/uL (0.00-0.70); EOSINOPHILS % (AUTO) 1.1 % (0.0-8.0); HEMATOCRIT 35.4 % (42-54); IMMATURE GRANULOCYTE ABSOLUTE 0.03 K/uL (0-1); LYMPHOCYTES # (AUTO) 2.6 K/uL (1.0-4.8); LYMPHOCYTES % (AUTO) 27.1 % (21.0-51.0); MEAN CORPUSCULAR HEMOGLOBIN 32.7 pg (27.0-33.0); MEAN CORPUSCULAR HGB CONC 33.6 g/dL (32.0-36.0); MEAN CORPUSCULAR VOLUME 97.3 fL (79-99); MONOCYTES # (AUTO) 0.6 K/uL (0.1-1.0); MONOCYTES % (AUTO) 6.5 % (3.0-13.0); NEUTROPHILS # (AUTO) 6.2 K/uL (1.8-7.7); NEUTROPHILS % (AUTO) 64.3 % (40.0-77.0); PLATELET COUNT (AUTO) 180 K/uL (130-400); RED BLOOD CELL COUNT(AUTO) 3.64 MIL/uL (4.50-6.20); RED CELL DISTRIBUTION WIDTH 14.6 % (11.0-15.5); WHITE BLOOD COUNT (AUTO) 9.6 K/uL (4.8-10.8)
[2023-10-06 05:45] LABS: INR 1.08 (0.85-1.15); PROTHROMBIN TIME 11.6 SEC (9.6-11.6)
[2023-10-06 05:54] LABS: ALBUMIN 3.7 g/dL (3.5-5.0); BILIRUBIN,TOTAL 0.4 mg/dL (0.2-1.0); CREATININE 2.4 mg/dL (0.5-1.3); MAGNESIUM 1.6 mg/dL (1.80-2.40); PHOSPHORUS 2.9 mg/dL (2.5-4.9); POTASSIUM 4.8 mmol/L (3.5-5.1); TOTAL PROTEIN, SERUM 7.7 g/dL (6.0-8.3)
[2023-10-06 06:02] LABS: PARTIAL THROMBOPLASTIN TIME 126.7 SEC (26.3-35.5)
[2023-10-06 06:11] LABS: B-TYPE NATRIURETIC PEPTIDE 728 pg/mL (0-100)
[2023-10-06] MEDS: MAGNESIUM 2GM PREMIX 50ML 50 ML IV ONE (06:33)
[2023-10-06 07:20] LABS: ERYTHROCYTE SEDIMENTATION RATE 49 MM/HR (0-20)
[2023-10-06] MEDS: CLOPIDOGREL 75MG TAB PO SCH (08:17)
[2023-10-06] MEDS: Vitamin B Complex/Vit C/Folic Acid PO SCH (08:17)
[2023-10-06] MEDS ORDERED: NON-FORMULARY MEDICATION 1 EACH (Metoprolol Succinate 50 MG) PO SCH (09:00)
[2023-10-06 10:37] LABS: INR 1.09 (0.85-1.15); PROTHROMBIN TIME 11.7 SEC (9.6-11.6)
[2023-10-06 10:38] LABS: PARTIAL THROMBOPLASTIN TIME 87.9 SEC (26.3-35.5)
[2023-10-06] MEDS ORDERED: LIDOCAINE HCL 400MG/20ML VIAL ONE (12:15)
[2023-10-06] MEDS ORDERED: IOHEXOL 350 MG/ML 100ML INFUS..BTL IV ONE (12:15)
[2023-10-06] MEDS ORDERED: BIVALIRUDIN 250 MG/VIAL IV ONE (12:15)
[2023-10-06] MEDS ORDERED: HEParin-NS 1,000 UNIT/500 ML 1,000 ML IV ONE (12:16)
[2023-10-06] MEDS ORDERED: HEParin 10,000 UNIT/10ML (1,000 UNIT/ML) VIAL ONE (12:16)
[2023-10-06] MEDS ORDERED: NITROGLYCERIN 50MG VIAL ONE (12:17)
[2023-10-06] MEDS ORDERED: MIDAZOLAM HCL 1 MG/ML 2ML VIAL ONE (12:44)
[2023-10-06] MEDS ORDERED: FENTanyl CITRate PF 50 MCG/1 ML 2ML VIAL ONE (12:44)
[2023-10-06] MEDS ORDERED: DiphenhydrAMINE HCL 50 MG/ML VIAL ONE (12:52)
[2023-10-06] MEDS ORDERED: ASPIRIN 325MG EC TAB PO ONE (13:44)
[2023-10-06] MEDS ORDERED: TICAGrelor 90 MG TABLET ONE (13:44)
[2023-10-06] MEDS ORDERED: MAGNESIUM 2GM PREMIX 50ML 50 ML IV SCH (14:30)
[2023-10-06] MEDS: 0.9%NACL 1000ML 1,000 ML IV SCH (14:56)
[2023-10-06] MEDS: INSULIN humuLIN R 100 UNIT/ML 3ML SQ SCH ×2 (15:46)
[2023-10-06] MEDS ORDERED: atorVAStatin 20 MG TABLET PO SCH (21:00)
[2023-10-06] MEDS: atorVAStatin 40 MG TABLET PO SCH (21:52)
[2023-10-06] MEDS: MELATONIN 5 MG TABLET PO SCH (21:52)
[2023-10-06] MEDS: TICAGrelor 90 MG TABLET PO SCH (21:53)
[2023-10-07 00:10] VITALS: BP 116/62; PULSE 74; RESP 18; TEMP 98.8
[2023-10-07 03:22] VITALS: BP 121/55; PULSE 75; RESP 18; TEMP 98.5
[2023-10-07 03:42] LABS: BASOPHILS # (AUTO) 0.05 K/uL (0.00-0.20); BASOPHILS % (AUTO) 0.7 % (0.0-5.0); EOSINOPHILS # (AUTO) 0.13 K/uL (0.00-0.70); EOSINOPHILS % (AUTO) 1.8 % (0.0-8.0); HEMATOCRIT 33.9 % (42-54); IMMATURE GRANULOCYTE ABSOLUTE 0.02 K/uL (0-1); LYMPHOCYTES # (AUTO) 1.6 K/uL (1.0-4.8); LYMPHOCYTES % (AUTO) 21.4 % (21.0-51.0); MEAN CORPUSCULAR HEMOGLOBIN 32.5 pg (27.0-33.0); MEAN CORPUSCULAR HGB CONC 32.4 g/dL (32.0-36.0); MEAN CORPUSCULAR VOLUME 100.3 fL (79-99); MONOCYTES # (AUTO) 0.6 K/uL (0.1-1.0); MONOCYTES % (AUTO) 8.3 % (3.0-13.0); NEUTROPHILS % (AUTO) 67.5 % (40.0-77.0); PLATELET COUNT (AUTO) 155 K/uL (130-400); RED BLOOD CELL COUNT(AUTO) 3.38 MIL/uL (4.50-6.20); RED CELL DISTRIBUTION WIDTH 14.9 % (11.0-15.5); WHITE BLOOD COUNT (AUTO) 7.4 K/uL (4.8-10.8)
[2023-10-07 04:01] LABS: ALBUMIN 3.3 g/dL (3.5-5.0); BILIRUBIN,TOTAL 0.2 mg/dL (0.2-1.0); CREATININE 2.2 mg/dL (0.5-1.3); MAGNESIUM 2.2 mg/dL (1.80-2.40); PHOSPHORUS 3.5 mg/dL (2.5-4.9); POTASSIUM 4.2 mmol/L (3.5-5.1); TOTAL PROTEIN, SERUM 6.9 g/dL (6.0-8.3)
[2023-10-07 08:30] VITALS: BP 124/69; PULSE 71; RESP 18; TEMP 98.7
[2023-10-07 08:45] VITALS: O2SAT 97
[2023-10-07] MEDS: metOPROLol sucCINATE 50 MG TAB.SR.24H PO SCH (09:31)
[2023-10-07] MEDS: ASPIRIN 81MG CHEW TAB PO SCH (09:31)
[2023-10-07] MEDS ORDERED: NITR0.4T50 SL (10:49)
[2023-10-07] MEDS ORDERED: TICA90TA PO (10:49)
[2023-10-07] MEDS ORDERED: ATOR40TA69 PO (10:49)
== END 2023-10-07 12:55 | disposition home or self-care (01) | DRG 321 ==
LOC: EDH 10:36 → EDHIP 13:21 → 2DH 17:26
PROVIDERS: ADMIT Internal Medicine; ATTEND Internal Medicine
PROC: 027034Z Dilation of Coronary Artery, One Artery with Drug-eluting Intraluminal Device, Percutaneous Approach (ICD-10-PCS; principal; 2023-10-06)
PROC: 4A023N7 Measurement of Cardiac Sampling and Pressure, Left Heart, Percutaneous Approach (ICD-10-PCS; 2023-10-06)
PROC: B2111ZZ Fluoroscopy of Multiple Coronary Arteries using Low Osmolar Contrast (ICD-10-PCS; 2023-10-06)
PROC: B2151ZZ Fluoroscopy of Left Heart using Low Osmolar Contrast (ICD-10-PCS; 2023-10-06)
PROC: B2181ZZ Fluoroscopy of Left Internal Mammary Bypass Graft using Low Osmolar Contrast (ICD-10-PCS; 2023-10-06)
DX: I21.4 Non-ST elevation (NSTEMI) myocardial infarction (principal); I50.31 Acute diastolic (congestive) heart failure; I13.0 Hypertensive heart and chronic kidney disease with heart failure and stage 1 through stage 4 chronic kidney disease, or unspecified chronic kidney disease; N17.9 Acute kidney failure, unspecified; I42.0 Dilated cardiomyopathy; I25.10 Atherosclerotic heart disease of native coronary artery without angina pectoris; D64.9 Anemia, unspecified; E11.22 Type 2 diabetes mellitus with diabetic chronic kidney disease; E11.65 Type 2 diabetes mellitus with hyperglycemia; N18.9 Chronic kidney disease, unspecified; E78.00 Pure hypercholesterolemia, unspecified; K21.9 Gastro-esophageal reflux disease without esophagitis; I25.5 Ischemic cardiomyopathy; I49.3 Ventricular premature depolarization; Z95.810 Presence of automatic (implantable) cardiac defibrillator; Z88.5 Allergy status to narcotic agent; Z85.46 Personal history of malignant neoplasm of prostate
CPT/HCPCS: 36415; 71045; 76770; 80048; 80051; 80053; 81001; 82550; 82570; 82948; 83036; 83735; 83880; 83935; 84100; 84156; 84484; 85025; 85610; 85651; 85730; 93005; 93306; 93356; 93459; 99156; 99157; C1760; C1769; C1887; C1894; C9604; G0378; J0583; J1200; J1644; J1940; J2250; J2270; J3010; J3475; J3490; J7030; Q9967; A4600; C1725; C1874; Q9965

== ENCOUNTER → 2024-06-25 | Outpatient (CLI) | payer OTHER ==
[~2024-06-25] MED LIST changes: -AEC81 PO; +APIX2.5T PO; +ATOR40TA69 PO; -CLOP-31 PO; +DICY-20 PO; -DICY10CA2 PO; -GABA-529 PO; -LEVO250T75 PO; +NITR0.4T50 SL; +TICA90TA PO
--- NOTE | 2024-06-25 13:40 | HMCIMG ---
Exam Type: MR HIP LEFT WO Clinical Information: PAIN L HIP Comparison: None Findings: Postoperative changes with screws involving the greater trochanter. Trochanteric bursal shows high signal consistent with mild bursitis. No acute fractures or dislocations are seen. The hip joint is otherwise preserved and there are no other significant soft tissue or bony abnormalities otherwise. Pression: Postoperative changes greater trochanter with mild trochanteric bursitis.
== END | disposition home or self-care (01) ==
LOC: RAH 10:57
PROVIDERS: ATTEND Family Medicine
DX: M70.62 Trochanteric bursitis, left hip (principal); M25.552 Pain in left hip; Z98.890 Other specified postprocedural states
CPT/HCPCS: 73721

== ENCOUNTER → 2024-12-25 | Outpatient (CLI) | payer OTHER ==
[~2024-12-25] MED LIST changes: -APIX2.5T PO; +CLOP-31 PO; -DICY-20 PO; +DICY20TA3 PO; +DIGO125T71 PO; +FENO145T26 PO; -HYDR-4379 PO; +PANT40TA54 PO; +ROSU10TA98 PO; +SUCR1TAB2 PO; -TICA90TA PO
--- NOTE | 2024-12-26 02:57 | HMCIMG ---
EXAM: MR LUMBAR SPINE WITHOUT IV CONTRAST CLINICAL HISTORY: Low back pain, unspecified. TECHNIQUE: Multiplanar and multisequence MR images of the lumbar spine obtained without IV contrast. CONTRAST: NONE COMPARISON: None. FINDINGS: VERTEBRAE: Vertebral body heights are preserved. Normal vertebral bodies and posterior elements. Anterior and posterior marginal osteophytes, modic type II endplate changes are visualized at multiple levels. There is mild dextroscoliosis of the lumbar spine with convexity toward the right, apex at L3 level with the Livingston's angle measuring 11???. There is grade II anterolisthesis of L4 over L5, without spondylolysis. There is transpedicular fixation screws and plates on the right side at L4, L5 levels. Bilateral laminectomy status at L3, L4, L5 levels. No CSF leakage. VERTEBRAL ALIGNMENT: There is preservation of the normal lumbar lordosis. There is minimal retrolisthesis at L1-L2, L2-L3, L3-L4 levels. AXIAL LEVELS DEMONSTRATE: Foramen grade IV, 5 disc degenerative changes are visualized in the lumbar spine, most severe at L5-S1 level with severe disc height reduction. Vacuum phenomenon is present at L4-L5 level. T12-L1: Tiny central disc protrusion indenting thecal sac, without significant lateral recess, neural foraminal narrowing. There is moderate bilateral facetal arthropathy and ligamentum flavum thickening. No nerve root impingement. L1-L2: Central and bilateral paracentral, foraminal disc protrusion, slightly asymmetric, right greater than left, causing thecal sac indentation, narrowing of the lateral recesses, more on the right side with right traversing L2 nerve roots impingement. There is associated moderate ligamentum flavum thickening and facet arthropathy. No exiting nerve root compression. L2-L3: Circumferential moderate sized diffuse bulge of the disc, compounded by ligamentum flavum thickening and facet arthropathy of severe degree causing spinal canal, lateral recesses and neural foraminal narrowing with bilateral traversing L3 nerve roots compression. No exiting nerve root compression at this level. There is minimal crowding of the cauda equina nerve roots with loss of CSF space between the nerve roots. The midsagittal diameter of the spinal canal at L2-L3 level is 5 mm. L3-L4: Circumferential large sized bulge of the disc, compounded by ligamentum flavum thickening and facet arthropathy of severe degree causing spinal canal stenosis, cauda equina nerve roots compression, bilateral traversing L4 nerve roots compression and impingement upon the bilateral exiting L3 nerve roots, left greater than right. The midsagittal diameter of the spinal canal at L3-L4 level is 2 mm. L4-L5: Circumferential pseudobulge of the disc causing neural foraminal mild narrowing, with minimal impingement upon left exiting L4 nerve roots. The midsagittal diameter of the spinal canal at L4-L5 level is 9 mm. L5-S1: Moderate sized disc osteophyte complex causing thecal sac compression, spinal canal, lateral recess and neural foraminal narrowing on the right with right traversing S1 and exiting L5 nerve roots compression. CORD: Normal position and signal intensity of the conus medullaris. There is no evidence to suggest arachnoiditis. SOFT TISSUES: Unremarkable. IMPRESSION: 1. 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 2. Degenerative changes throughout the lumbar spine including: mild dextroscoliosis with 11??? Livingston angle (apex L3), reduced lumbar lordosis, anterior and posterior osteophytes, Modic type II endplate changes at multiple levels, severe disc height loss at L5-S1, vacuum phenomenon at L4-L5, and minimal retrolisthesis at L1-L2, L2-L3, and L3-L4. 3. Grade II anterolisthesis of L4 on L5 without spondylolysis, with right-sided transpedicular fixation screws and plates at L4 and L5. Bilateral laminectomy changes at L3, L4, and L5. No CSF leak or arachnoiditis. 4. Central and bilateral paracentral/foraminal disc protrusion at L1-L2 (right greater than left) causing impingement of the right traversing L2 nerve roots. 5. Moderate diffuse disc bulge at L2-L3 with bilateral traversing L3 nerve root compression. 6. Severe spinal canal stenosis at L3-L4 from a large circumferential disc bulge with severe facet arthropathy and ligamentum flavum thickening, causing cauda equina nerve root compression, bilateral traversing L4 nerve root compression, and impingement of the exiting L3 nerve roots (left greater than right). 7. Severe disc degeneration at L5-S1 with a moderate disc osteophyte complex causing right traversing S1 and exiting L5 nerve roots. /Loli
== END | disposition home or self-care (01) ==
LOC: RAH 15:53
PROVIDERS: ATTEND Family Medicine
DX: M51.360 Other intervertebral disc degeneration, lumbar region with discogenic back pain only (principal); M51.379 Other intervertebral disc degeneration, lumbosacral region without mention of lumbar back pain or lower extremity pain; M47.817 Spondylosis without myelopathy or radiculopathy, lumbosacral region; M51.25 Other intervertebral disc displacement, thoracolumbar region; M47.815 Spondylosis without myelopathy or radiculopathy, thoracolumbar region; M51.26 Other intervertebral disc displacement, lumbar region; M41.86 Other forms of scoliosis, lumbar region; M48.07 Spinal stenosis, lumbosacral region; M43.16 Spondylolisthesis, lumbar region; M25.78 Osteophyte, vertebrae
CPT/HCPCS: 72148